=== PATIENT | male | born 1955 | race Caucasian/White ===

== ENCOUNTER 2021-07-20 12:51 | Outpatient (REF) | payer OTHER, SELFPAY ==
[2021-07-20 13:07] LABS: BUN 28 mg/dL; CREATININE 1.1 mg/dL
== END 2021-07-20 12:52 | disposition home or self-care (01) ==
LOC: LBN 12:51
PROVIDERS: PCP Family Medicine; Visit Provider Urology
DX: N13.8 Other obstructive and reflux uropathy (principal)
CPT/HCPCS: 84520; 82565

== ENCOUNTER 2021-10-17 19:01 | Outpatient (REF) | payer OTHER, SELFPAY ==
[2021-10-17 12:00] LABS: Source Nasal/Nares
[2021-10-17 15:41] LABS: COVID-19 PCR Negative (Negative)
== END 2021-10-17 19:02 | disposition home or self-care (01) ==
LOC: LBN 19:01
PROVIDERS: PCP Family Medicine; Visit Provider Urology
DX: Z20.822 Contact with and (suspected) exposure to COVID-19 (principal); Z01.818 Encounter for other preprocedural examination
CPT/HCPCS: 87635

== ENCOUNTER 2021-10-19 05:56 | Observation (INO) | payer OTHER, SELFPAY ==
[2021-10-19] VITALS (15 sets, daily range): BP systolic 104–137; BP diastolic 62–99; PULSE 51–94; RESP 9–21; TEMP 35.5–36.9; O2SAT 94–99; BMI 25.9
[2021-10-19] MEDS: Lactated Ringers 1,000 ML 80 ML IV (06:49)
--- NOTE | 2021-10-19 07:03 | W.PM.HP.N ---
Date of service: 10/19/21 Time of Service: 07:03 Assessment and Plan Assessment and plan (1) Obstructive uropathy: Status: Acute Assessment and plan: We will move ahead with a cystoscopy and TURP. We discussed risks including infection, bleeding, bladder neck contracture and retrograde ejaculation. History of Present Illness History of Present Illness Chief Complaint: Urinary Retention Narrative: This is a 66-year-old gentleman who developed urinary retention and obstructive uropathy.? His serum creatinine had raised to 3 ng/dL.? After his bladder was drained, his serum creatinine returned to baseline. He had a suspicious prostate exam, so his PSA level and multiparameter prostate MRI were arranged.? Both his PSA and prostate MRI had a low suspicion of there being a clinically significant prostate cancer, so we did not arrange for an ultrasound guided biopsy of the prostate. he presents for TURP. His catheter continues to drain well with no clots or occlusions. Review of Systems Narrative: No fevers or chills No vision change or dysphasia No diabetes or thyroid No shortness of breath, cough or hemoptysis No chest pain or palpitations No nausea, vomiting, hepatitis, ulcers, jaundice, diarrhea or constipation No seizures, strokes or peripheral neuropathy No bleeding disorders or anemia No gout PFSH All Active Problems Obstructive uropathy (Acute) Medical History Bladder obstruction Broken jaw Pt. states this was a long time ago 1970's Kidney stones Lower urinary tract symptoms (LUTS) Urinary retention Surgical History H/O hernia repair Social History (Updated 07/20/21 @ 12:22 by Jesus Cutler MD) Smoking/Tobacco Use Status: Never Smoking risk assessment performed?: Yes Alcohol Intake: never Drug use: Never Substance use type: does not use Do you feel safe at home: Yes Do you feel safe in your relationship?: Yes Meds Allergies and Home Medications Allergies Allergy/AdvReac Type Severity Reaction Status Date / Time No Known Allergies Allergy Verified 10/19/21 06:20 Home Medications Medication Instructions Recorded Confirmed Type ibuprofen 800 mg tablet 800 mg PO Q8H PRN 07/20/21 10/17/21 History vitamin B complex (B 1 tab PO DAILY 07/20/21 10/19/21 History Complex-Vitamin B12 tablet) Exam Const General: cooperative and not in acute distress Neck Neck: supple Resp Effort & Inspection: normal respiratory effort Auscultation: clear to auscultation bilaterally Cardio Rate: regular rate Rhythm: regular rhythm GI Palpation: soft and no masses Neuro General: patient alert, patient awake and patient oriented x3 Results Last Vital Signs Temp 36.5 C 10/19/21 06:15 Pulse 58 L 10/19/21 06:15 Resp 18 10/19/21 06:15 BP 135/86 10/19/21 06:15 Pulse Ox 96 10/19/21 06:15
--- NOTE | 2021-10-19 07:20 | W.ANESPRE ---
General Info Date of Service Date Performed: 10/19/21 Height: 5 ft 8 in Weight: 77.3 kg Body Mass Index (BMI): 25.9 Surgical Procedure: Operation Date: 10/19/21 07:40 Proposed Procedure Side Surgeon p Cystoscopy/Transurethral Resection Prostate/Vaporization of Prostate Jesus Cutler MD Meds Allergies and Home Medications Allergies Allergy/AdvReac Type Severity Reaction Status Date / Time No Known Allergies Allergy Verified 10/19/21 06:20 Home Medication Medication Instructions Recorded ibuprofen 800 mg tablet 800 mg PO Q8H PRN 07/20/21 vitamin B complex (B 1 tab PO DAILY 07/20/21 Complex-Vitamin B12 tablet) Current Visit Medications: Current Medications Generic Name Dose Route Start Last Admin Trade Name Freq PRN Reason Stop Dose Admin Ringer's Solution 1,000 mls @ 80 mls/hr 10/19/21 06:00 10/19/21 06:49 IV 11/17/21 23:59 80 mls/hr INFUSION LV Administration Cefazolin Sodium/Dextrose 2 gm in 50 mls @ 100 mls/hr 10/19/21 06:00 Ancef Duplex IVPB 10/19/21 16:00 PREOP LV IV Miscellaneous Supplies 1 each 10/19/21 06:00 Iv Access IV 11/17/21 23:59 DIRECTED LV Sodium Chloride 0 ml 10/19/21 06:00 Normal Saline Flush 10 Ml Syr IV 11/17/21 23:59 PRN PRN Sodium Chloride 0 ml 10/19/21 06:00 Normal Saline 10 Ml Vial IJ 11/17/21 23:59 DIRECTED PRN Sterile Water 0 ml 10/19/21 06:00 Water,Injection,Sterile 10 Ml Vial IJ 11/17/21 23:59 DIRECTED PRN PFSH Active Problems Active Problems: Problem Status Onset Code Obstructive uropathy N13.9 Medical History Medical History Bladder obstruction Broken jaw Pt. states this was a long time ago 1970's Kidney stones Lower urinary tract symptoms (LUTS) Urinary retention Surgical History Surgical History H/O hernia repair Tobacco Smoking/Tobacco Use Status: Never Alcohol Alcohol Intake: never Substance Use Substance use: Never Substance use type: does not use Vital Signs and Lab Results Vital Signs Most Recent Vital Signs in EMR: Most Recent Vital Signs Temp Pulse Resp BP Pulse Ox 36.5 C 58 L 18 135/86 96 10/19/21 06:15 10/19/21 06:15 10/19/21 06:15 10/19/21 06:15 10/19/21 06:15 Lab Results Blood Type / Crossmatch: No Data to Display Complete Blood Count: No Data to Display Complete Metabolic Panel: No Data to Display Liver Function Panel: No Data to Display Coagulation Panel: No Data to Display Cardiac Panel: No Data to Display Arterial Blood Gas: No Data to Display Venous Blood Gas: No Data to Display Pancreas Panel: No Data to Display Thyroid Panel: No Data to Display Infectious Disease: Coronavirus (COVID-19)(PCR) Negative (Negative) 10/17/21 09:00 Coronavirus 2019 Source Nasal/Nares 10/17/21 09:00 Blood Cultures: No Data to Display Toxicology Panel: No Data to Display Anesthesia Assessment and Plan Anesthesia History Personal History: No History of Anesthesia Complications Family History: No Family History of Anesthesia Complications Exercise Tolerance Exercise Tolerance: Metabolic Equivalents>4 Pertinent Negatives Pertinent Negatives: No Symptoms of GERD, No Major Cardiovascular Symptoms or Complaints, No Major Pulmonary Symptoms or Complaints and No History of CVA/TIA Cardiac & Pulmonary Exam Cardiac Exam: Normal S1/S2 Heart Sounds Pulmonary Exam: Clear Bilateral Breath Sounds Implantable Cardiac Device Does patient have a Pacemaker or an ICD?: No Airway Exam Known Difficult Airway: No Mallampati Class: 1 Mouth Opening: Normal (> 3cm) Thyromental Distance: Greater than 3 cm Neck Range of Motion: Full ROM Neck Circumference: Normal Teeth Condition: Normal Dentition ASA Classification ASA Score: ASA 2 Emergency Case?: No NPO Status NPO Status: NPO Clears >2 hours, Solids >8 hours Anesthesia Plan Resuscitation Status: Full Code Anesthesia Technique: General Anesthesia Airway Planned: LMA Monitors Used: Standard Monitors
[2021-10-19] MEDS: ceFAZolin 2 GM/50 ML BAG IVPB (07:40)
[2021-10-19] MEDS: Lidocaine 2% Jelly 6 ML SYR (07:59)
--- NOTE | 2021-10-19 08:18 | PROST_PTH ---
PATIENT: Bart Dial LOC: U#:[id number] AGE/SX: 66/M ROOM: 206 RE10/19/[address]: Jesus Cutler MD : [id number] BED: A DIS: 10/20/2021 SPEC #: [id number] RECD: 10/19/21 12:56 STATUS: MARYLOU REQ #: [id number] TEOFILO: 10/19/21 08:[address]: Jesus Cutler DEPT: Surgical Specimen RECD BY: Christine Fink ENTERED: 10/19/21 12:57 SP TYPE: PROST OTHR DR: Monico Puente Tissues: 1 - PROSTATE CURRETTINGS Procedures: GROSS AND MICRO LEVEL 4 Comments: [id number]
--- NOTE | 2021-10-19 09:35 | W.PM.OP ---
Date of service: 10/19/21 Time of Service: 09:35 Operative Note Operative Note DATE OF PROCEDURE: 10/19/21 PRE-OP DIAGNOSIS: Urinary retention PROCEDURE: cystoscopy, TURP with vaporization of prostate SURGEON: Jesus Cutler ANESTHESIA TYPE: General LMA/ETT Refer to Anesthesia Record ESTIMATED BLOOD LOSS: 300 PATHOLOGY: other (prostate chips) COMPLICATIONS: None Patient was transported to: PACU Patient's condition: stable Implants: 24 Armenian irrigating catheter with 50 cc sterile water in balloon Indications: This is a 66-year-old gentleman who presented to the local emergency department with abdominal discomfort and bloating. He was found to have a markedly distended bladder and had over 3 L of urine in his bladder when the catheter was placed. Serum creatinine was originally elevated. After a week of catheter drainage, his creatinine came down to baseline. He had an abnormal prostate exam so he was evaluated with a PSA as well and was multiparameter MRI of the prostate. These studies indicated a very low risk of clinically significant prostate cancer. He is agreeable now to a simple prostatectomy to help relieve his obstructive symptoms. Findings: Diffusely enlarged prostate Procedure Description: The patient was brought to the operating room on 10/19/2021. After successful induction of general anesthesia, he was placed in the dorsal lithotomy position. He was given a dose of preoperative IV antibiotics. His indwelling urethral catheter balloon was deflated and the catheter was removed. His genitalia was then prepped and draped. A 26 Armenian resectoscope sheath was passed through the urethra into the bladder. We inspected the urethra and bladder using a 30 degree lens and visual obturator. The pendulous, bulbar and membranous urethra's appeared normal with no strictures. The prostatic urethra is mostly lateral lobe enlargement with quite a bit of anterior tissue as well. There is only a minimal median lobe noted on the prostate. The bladder neck was entered and the bladder mucosa was inspected. No papillary or nodular lesions were seen. The bladder was moderately trabeculated. We then used the [employer] resectoscope and bipolar cautery to resect the prostate tissue from the level of the bladder neck out to the verumontanum. The depth of the resection was down toward the prostatic capsule. All resected tissue was evacuated and sent to pathology for permanent section. As we got closer to the prostatic capsule, we switched to a vaporization button and vaporized the tissue down to the capsule. Any bleeding points that were encountered were cauterized with the coagulation current. At the completion of the procedure, all resected tissue and any remaining blood clots were evacuated from the bladder. A 24 Armenian hematuria catheter was passed through the urethra into the bladder. The catheter balloon was inflated with 50 cc of sterile water and continuous bladder irrigation with saline was begun. We placed traction on the catheter balloon until the irrigant became clear. Hand irrigation of the catheter was also performed. He tolerated this procedure with no complications. He was taken to the recovery room in stable condition.
--- NOTE | 2021-10-19 10:02 | W.ANESPOSTOP ---
Postoperative Evaluation Date, Time and Location Date Performed: 10/19/21 Time Performed: 10:02 Patient Location: Day Surgery Unit Vital Signs Most Recent Imported Vital Signs: Most Recent Vital Signs Temp Pulse Resp BP Pulse Ox 36.2 C L 72 14 132/94 H 99 10/19/21 09:46 10/19/21 09:46 10/19/21 09:46 10/19/21 09:46 10/19/21 09:46 Assessment Mental Status: Awake (Alert & Oriented to Patient Baseline) Airway and Respiratory Function: Patent airway with normal (patient baseline) respiratory exam Cardiovascular Function: Hemodynamically Stable Hydration Status: Adequately Hydrated Nausea & Vomiting: No Nausea or Vomiting Pain: Pt. Denies Any Pain Peripheral Nerve Block: Patient did not receive a nerve block
[2021-10-19] MEDS: Lactated Ringers 1,000 ML 125 ML IV ×2 (10:19→17:26)
[2021-10-19] MEDS: ceFAZolin 1 GM/50 ML BAG IVPB (15:15)
[2021-10-19] MEDS: traMADol 50 MG TAB PO (20:39)
[2021-10-19] MEDS: Ibuprofen 800 MG TAB PO (20:39)
[2021-10-19] MEDS: Docusate Sodium 100 MG CAP PO (20:39)
[2021-10-20] MEDS: ceFAZolin 1 GM/50 ML BAG IVPB ×2 (00:36→07:41)
[2021-10-20] MEDS: Lactated Ringers 1,000 ML 125 ML IV (01:08)
[2021-10-20] MEDS: Ibuprofen 800 MG TAB PO (06:01)
[2021-10-20] MEDS: Acetaminophen 325 MG TAB 650 MG PO (06:02)
[2021-10-20 06:47] LABS: HCT 33.6 % (40.0-50.0); MCH 30.9 pg (27.0-33.0); MCHC 35.7 % (32.0-36.0); MCV 87 fL (80-95); Platelet Count 212 10^3/uL (130-400); RBC 3.88 10^6/uL (4.36-5.78); RDW 12.5 % (11.8-14.1); RDW-SD 39.6 fL; WBC 18.48 10^3/uL (4.4-10.8)
[2021-10-20 07:02] LABS: Anion Gap 6.5 mmol/L (3-11); BUN 18 mg/dL (7-18); CO2 28.5 mmol/L (21.0-32.0); CREATININE 1.2 mg/dL (0.70-1.30); Calcium 8.2 mg/dL (8.5-10.1); Chloride 105 mmol/L (98-107); Glucose 119 mg/dL (74-106); Potassium 4.8 mmol/L (3.5-5.1); Sodium 140 mmol/L (136-145)
--- NOTE | 2021-10-20 07:19 | W.PM.PROGNOT ---
Date of Service Date of service: 10/20/21 Time of Service: 07:19 Assessment and Plan Assessment and plan (1) Obstructive uropathy: Status: Acute Assessment and plan: He is doing well following his TURP. I will discharge him home with his catheter in place. He will come to the office early next week for a voiding trial. Subjective Subjective Interval history since last seen: He remained comfortable overnight with no clot retention. He does have some discomfort if he moves around. Exam Narrative Exam Narrative: He appears comfortable. His vital signs are documented elsewhere His urine is clear with slow CBI His hemoglobin and serum creatinine are appropriate He is awake and alert Objective Last Vital Signs Temp 36.9 C 10/19/21 22:37 Pulse 70 10/19/21 22:37 Resp 17 10/19/21 22:37 BP 117/76 10/19/21 22:37 Pulse Ox 95 10/19/21 22:37 Laboratory Results - last 24 hr 10/20/21 10/20/21 06:10 06:10 WBC 18.48 H RBC 3.88 L Hgb 12.0 L Hct 33.6 L MCV 87 MCH 30.9 MCHC 35.7 RDW 12.5 Plt Count 212 MPV 10.0 Sodium 140 Potassium 4.8 Chloride 105 Carbon Dioxide 28.5 Anion Gap 6.5 BUN 18 Creatinine 1.2 Estimated GFR/1.73 m2 >= 60.00 Glucose 119 H Calcium 8.2 L
--- NOTE | 2021-10-20 07:21 | W.PM.DS.N ---
Date of service: 10/20/21 Time of Service: 07:21 DS: Diagnosis Discharge Diagnosis (1) Obstructive uropathy: Status: Acute Discharge Plan Disposition Patient Disposition: HOME Condition: Stable Discharge Details Reason For Visit: Urinary Retention Admit Date/Time: 10/19/21 05:56 Admit Provider: Jesus Cutler Attending Provider: Jesus Cutler Primary Care Provider: Monico Puente Hospital Course Hospital Course: The patient was admitted and taken to the operating room on 10/19/2021 where he underwent a transurethral resection of the prostate. Following the procedure, he was admitted to the medical surgical unit. He had an irrigating catheter in place and continuous bladder irrigation was maintained for 24 hours. He had no episodes of clot retention overnight. He remained comfortable. His hemoglobin and his serum creatinine was both stable on postoperative day #1. The continuous bladder irrigation was discontinued as was his IV fluids. He is being discharged to home on postoperative day #1. We will place a catheter plug on the irrigation port of his indwelling catheter. The drainage port will be hooked to a leg bag. He will follow-up in our office early next week for a voiding trial. He will be seen in the office for a bladder scan and to review his surgical pathology 1 to 2 weeks later. Home Meds and New Rx's Prescriptions: New sulfamethoxazole-trimethoprim [Bactrim DS] 800-160 mg tablet 1 tab PO DAILY Qty: 5 0RF No Action vitamin B complex [B Complex-Vitamin B12] Tablet 1 tab PO DAILY ibuprofen 800 mg tablet 800 mg PO Q8H PRN Discharge Instructions Additional Instructions: catheter plug to irrigation port of catheter drainage port of catheter to leg bag followup early next week for voiding trial/catheter removal followup appt with me 1 to 2 weeks to review pathology new prescription for Bactrim DS sent to pharmacy - take one daily until catheter has been removed Activity:: no lifting over 20 pounds until followup visit Shower/Bathe:: 24 hours Activity:: No lift over 20 pounds un Equipment/Supplies:: pantoja to leg bag Diet:: As Tolerated Discharge Orders Discharge Orders: Discharge Order (Routine); Ordered 10/20/21 Ordered By: Jesus Cutler DS: Summary Time Spent with Patient providing and/or coordinating discharge services: Less than 30 minutes Status at Discharge Functional status at discharge: independent ambulation Overall status at discharge: patient is back to baseline Mental Status: mental status grossly normal Speech and Movement: speech and movement normal Mood: congruent mood Affect: normal affect Exam Narrative Exam Narrative: On the morning of discharge, the patient looks well. He does not appear septic or toxic His vital signs are documented elsewhere in this chart His lungs are clear Cardiac exam shows a regular rate and rhythm His abdomen is soft with no distention His irrigating catheter is draining clear fluid with CBI running at a slow rate He is awake and alert. Psych Mental Status: mental status grossly normal Speech and Movement: speech and movement normal Mood: congruent mood Affect: normal affect DS: Data Vitals/I&O Vitals and I&O: Vital Signs Temperature 36.9 C 10/19/21 22:37 Temperature Source Tympanic 10/19/21 22:37 Pulse 70 10/19/21 22:37 Pulse Rhythm Regular 10/20/21 03:26 Respiratory Rate 17 10/19/21 22:37 Respiratory Effort 10/20/21 03:26 Respiratory Depth Normal 10/20/21 03:26 Respiratory Pattern Normal 10/20/21 03:26 Blood Pressure 117/76 10/19/21 22:37 Pulse Oximetry 95 10/19/21 22:37 Respiratory End-tidal CO2 29 10/19/21 10:40 Oxygen Delivery Method Room Air 10/19/21 22:37 Oxygen Flow Rate 0 10/19/21 22:37 Pain Level 3 10/20/21 06:02 Intake & Output 10/19/21 10/19/21 10/20/21 11:59 23:59 11:59 Intake Total 2.7 922. 1012.5 / 1012.5 Balance 2. 92. 1012.5 / 1012.5 Weight 77.3 kg Intake: IV 1072.917 / 1894.834 822.917 / 0006.545 1549.5 / 1012.5 Oral 100 / 100 Other: Urine Color Lopez Pale [place] Urine Appearance Hematuria Clear Hematuria Clots Comment A few small clots low flow and clear at thistime Emesis Description None Data Completed and Pending Labs on day of discharge: Labs from last 24 hours 10/20/21 10/20/21 06:10 06:10 WBC 18.48 H RBC 3.88 L Hgb 12.0 L Hct 33.6 L MCV 87 MCH 30.9 MCHC 35.7 RDW 12.5 Plt Count 212 MPV 10.0 Sodium 140 Potassium 4.8 Chloride 105 Carbon Dioxide 28.5 Anion Gap 6.5 BUN 18 Creatinine 1.2 Estimated GFR/1.73 m2 >= 60.00 Glucose 119 H Calcium 8.2 L PFSH All Active Problems Obstructive uropathy (Acute) Medical History Bladder obstruction Broken jaw Pt. states this was a long time ago 1970's Kidney stones Lower urinary tract symptoms (LUTS) Urinary retention Surgical History H/O hernia repair Social History Smoking/Tobacco Use Status: Never Smoking risk assessment performed?: Yes Alcohol Intake: never Drug use: Never Substance use type: does not use Do you feel safe at home: Yes Do you feel safe in your relationship?: Yes
[2021-10-20 07:24] VITALS: BP 105/65; PULSE 69; RESP 16; TEMP 36.6; O2SAT 97
[2021-10-20] MEDS: Docusate Sodium 100 MG CAP PO (07:40)
== END 2021-10-20 09:21 | disposition home or self-care (01) | DRG 713 ==
LOC: MS 10-20 08:24 → PDS 11-23 12:54 → MS 11-23 12:54
PROVIDERS: Admitting Provider Urology; PCP Family Medicine; Visit Provider Urology
PROC: 0VT08ZZ Resection of Prostate, Via Natural or Artificial Opening Endoscopic (ICD-10-PCS; CPT 52601; principal; 2021-10-19 07:30)
DX: N40.1 Benign prostatic hyperplasia with lower urinary tract symptoms (principal); N13.8 Other obstructive and reflux uropathy; N34.2 Other urethritis; R33.9 Retention of urine, unspecified; Z87.442 Personal history of urinary calculi
CPT/HCPCS: 52601; 80048; 85027; 88305; 96361; 96365; 96366; G0378; J0131; J0690; J1100; J1885; J2250; J2405

== ENCOUNTER 2021-10-24 16:14 | Outpatient (REF) | payer OTHER, SELFPAY | END 2021-10-24 16:15 | disposition home or self-care (01) | LOC: LBN 16:14 | PROVIDERS: PCP Family Medicine; Visit Provider Nurse Practitioner Gerontology | DX: R31.9 Hematuria, unspecified (principal) | CPT/HCPCS: 87086 ==